=== PATIENT | female | born 1970 | race Caucasian/White ===

== ENCOUNTER 2023-09-05 08:26 | Emergency (ER) | payer MEDICARE, BC ==
[~2023-09-05] VITALS: Ht 165.1 cm; Wt 96.9 kg
[2023-09-05 08:32] VITALS: TEMP 97
[2023-09-05] MEDS ORDERED: diphenhydrAMINE 50 mg/ml inj IV ONE (09:20)
--- NOTE | 2023-09-05 09:28 | NUR ---
AFTER SEEING PT, I REVIEWED AND AGREE WITH THE ASSESSMENT
[2023-09-05] MEDS ORDERED: metoclopramide 5 mg/ml inj IV ONE (09:35)
[2023-09-05] MEDS ORDERED: normal saline 1000ml 1,000 ML IV ONE (09:35)
[2023-09-05] MEDS ORDERED: HYDROmorphone 1 mg/ml syringe IV ONE (10:40)
[2023-09-05] MEDS ORDERED: ONDA4TAB12 PO (12:04)
[2023-09-05 12:19] VITALS: BP 115/61; PULSE 76; RESP 18; O2SAT 95
== END 2023-09-05 12:22 | disposition home or self-care (01) ==
LOC: ER 08:27
DX: U07.1 COVID-19 (principal); G43.909 Migraine, unspecified, not intractable, without status migrainosus; Z88.6 Allergy status to analgesic agent; Z88.5 Allergy status to narcotic agent; Z88.8 Allergy status to other drugs, medicaments and biological substances
CPT/HCPCS: 36415; 87502; 87503; 87811; 96361; 96374; 96375; 99284; J1170; J1200; J2765; J7030

== ENCOUNTER 2024-06-27 21:08 | Emergency (ER) | payer BC, MEDICARE ==
[~2024-06-27] VITALS: Ht 165.1 cm; Wt 85.0 kg
[~2024-06-27 21:08] MED LIST: ONDA-243 PO
[2024-06-27 21:11] VITALS: TEMP 97.7
[2024-06-27] MEDS: proCHLORperazine 10 MG/2 ml inj IV ONE (21:56)
[2024-06-27] MEDS: dexamethasone 4mg/ml inj IV SCH (21:57)
[2024-06-27] MEDS: normal saline 1000ml 1,000 ML IV ONE (21:57)
[2024-06-27] MEDS: diphenhydrAMINE 50 mg/ml inj IV ONE (21:57)
[2024-06-27] MEDS ORDERED: RIME75TA PO (22:33)
[2024-06-27] MEDS ORDERED: ONDA-243 PO (22:34)
[2024-06-27] MEDS: HYDROmorphone inj. 0.5 MG/0.5 ML DISP.SYRIN IV ONE (22:43)
[2024-06-27 23:23] VITALS: BP 110/59; PULSE 78; RESP 18; O2SAT 98
== END 2024-06-27 23:26 | disposition home or self-care (01) ==
LOC: ER 21:09
DX: R51.9 Headache, unspecified (principal); Z88.6 Allergy status to analgesic agent; Z79.899 Other long term (current) drug therapy
CPT/HCPCS: 96361; 96374; 96375; 99284; J0780; J1100; J1170; J1200; J7030

== ENCOUNTER 2025-03-07 08:22 | Day surgery (SDC) | payer MEDICARE ==
[2025-03-07] VITALS (11 sets, daily range): BP systolic 93–135; BP diastolic 47–69; PULSE 58–65; RESP 11–20; O2SAT 97–100
[~2025-03-07] VITALS: Ht 165.1 cm; Wt 81.8 kg
[~2025-03-07 08:22] MED LIST changes: +ALLO100T PO; +ALPR-624 PO; +ATOR20TA PO; +CHOL20004 PO; +DESV50TA20 PO; +ESTR2TAB50; +FERR324T23 PO; +FURO40TA4 PO; +LEVO137T24 PO; -ONDA-243 PO; +PROP80TA4 PO; +RAMI5CAP71 PO; +RIME75TA PO; +TRAM200T30 PO
[2025-03-07] MEDS ORDERED: iohexol 300 MG/1 ML 50ml polymer ONE (09:12)
[2025-03-07] MEDS ORDERED: glucagon, human recombinant 1mg kit ONE ×2 (09:12)
[2025-03-07] MEDS ORDERED: iohexol 300mg/ml 100ml inj. ONE (09:15)
[2025-03-07] MEDS ORDERED: levoFLOXACIN-Levaquin 500mg/D5 0 ML IV ONE ×2 (09:28→09:29)
[2025-03-07 09:29] LABS: BASOPHILS # (AUTO) 0.1 X10'3 (0-0.2); BASOPHILS % (AUTO) 0.9 % (0-1); EOSINOPHILS # (AUTO) 0.6 X10'3 (0-0.9); EOSINOPHILS % (AUTO) 4.5 % (0-6); HEMATOCRIT 31.5 % (35.0-45.0); HEMOGLOBIN 10.4 g/dl (12.0-16.0); LYMPHOCYTES # (AUTO) 2.4 X10'3 (1.1-4.8); LYMPHOCYTES % (AUTO) 18.8 % (21-51); MEAN CORPUSCULAR HEMOGLOBIN 28.9 PG (27.0-31.0); MEAN CORPUSCULAR HGB CONC 32.9 g/dL (33.0-36.5); MEAN PLATELET VOLUME 7.8 FL (7.4-10.4); MONOCYTES # (AUTO) 0.7 X10'3 (0-0.9); MONOCYTES % (AUTO) 5.8 % (2-12); NEUTROPHILS # (AUTO) 8.7 X10'3 (1.8-7.7); PLATELET COUNT 354 X10'3 (140-440); RED BLOOD COUNT 3.58 X10'6 (4.20-5.60); RED CELL DISTRIBUTION WIDTH 15.7 % (11.5-14.5); WHITE BLOOD COUNT 12.5 X10'3 (4.5-11.0)
[2025-03-07 09:42] LABS: ALBUMIN 2.7 G/DL (3.4-5.0); ALBUMIN/GLOBULIN RATIO 0.6 (1.1-1.5); ALKALINE PHOSPHATASE 203 IU/L (46-116); BLOOD UREA NITROGEN 47 MG/DL (7-18); CALCIUM 9.1 MG/DL (8.5-10.1); CHLORIDE 99 MMOL/L (99-107); CREATININE 3.13 MG/DL (0.40-0.90); PRE OP ALT 18 U/L (30-65); PRE OP ANION GAP 8 (8-16); PRE OP AST 18 U/L (10-37); PRE OP BILIRUB, TOTAL 0.4 MG/DL (0.0-1.0); PRE OP GLUCOSE 121 MG/DL (70-104); PRE OP POTASSIUM 4.6 MMOL/L (3.4-5.1); PRE OP SODIUM 134 MMOL/L (135-145); TOTAL CARBON DIOXIDE 27.3 MMOL/L (24-32); TOTAL PROTEIN 7.3 G/DL (6.4-8.2); eCRCL 18 ML/MIN; eGFR 15 ML/MIN
[2025-03-07] MEDS ORDERED: MIDAZolam 1 MG/ML 5ML VIAL ONE (09:47)
[2025-03-07] MEDS ORDERED: fentaNYL/PF 50MCG/1 ML 2ML syringe ONE (09:57)
[2025-03-07] MEDS ORDERED: midazolam 1 mg/ML 2ml injection ONE (09:58)
[2025-03-07] MEDS ORDERED: LIDOcaine 2% (20mg/ml) 5ml vial ONE (09:58)
[2025-03-07] MEDS ORDERED: rocuronium 10mg/ml inj IV ONE (09:58)
[2025-03-07] MEDS ORDERED: propofol inj 20 ML IV ONE (09:58)
[2025-03-07] MEDS ORDERED: sevoflurane 250ml liquid IH ONE (10:00)
[2025-03-07] MEDS ORDERED: simethicone 40mg/0.6ml oral drops 30ml ONE (10:14)
[2025-03-07] MEDS ORDERED: dexamethasone sod phosphate 4mg/ml inj. ONE (10:16)
[2025-03-07] MEDS ORDERED: ceFOXitin 1 GM/NS 100mL IVPB 100 ML IV ONE (10:17)
[2025-03-07] MEDS ORDERED: ceFOXitin 1 GM/D5W 50mL IVPB 50 ML IV ONE (10:19)
[2025-03-07] MEDS ORDERED: sugammadex 200mg/2ml injection IV ONE (10:31)
[2025-03-07] MEDS ORDERED: ondansetron/PF 4mg/2ml inj IV PRN (10:45)
[2025-03-07] MEDS ORDERED: enalaprilat 1.25mg/ml 2ml vial IV PRN (10:45)
[2025-03-07] MEDS ORDERED: fentaNYL/PF 50MCG/1 ML 2ML syringe IV PRN ×2 (10:45)
[2025-03-07] MEDS ORDERED: ringers solution, lacted 1,000 ML IV SCH (10:45)
[2025-03-07] MEDS ORDERED: hydrALAZINE 20mg/ml inj. IV PRN (10:45)
== END 2025-03-07 12:11 | disposition home or self-care (01) ==
LOC: GI LAB 08:22
PROVIDERS: ATTEND Internal Medicine Gastroenterology
DX: T85.590A Other mechanical complication of bile duct prosthesis, initial encounter (principal); K83.8 Other specified diseases of biliary tract; N18.5 Chronic kidney disease, stage 5; G43.909 Migraine, unspecified, not intractable, without status migrainosus; I12.0 Hypertensive chronic kidney disease with stage 5 chronic kidney disease or end stage renal disease; F41.9 Anxiety disorder, unspecified; F32.A Depression, unspecified; Z79.899 Other long term (current) drug therapy
CPT/HCPCS: 36415; 43276; 74328; 80053; 85025; C1769; C1889; C2625; J0360; J0694; J1100; J1610; J2003; J2250; J2405; J2704; J3010; J3490; J7030; J7120; Q9967; Z7506; Z7512; Z7610; J0696; J1956

== ENCOUNTER 2025-05-02 07:44 | Day surgery (SDC) | payer MEDICARE ==
[2025-05-02] VITALS (9 sets, daily range): BP systolic 133–157; BP diastolic 65–85; PULSE 74–85; RESP 12–20; TEMP 98; O2SAT 96–98
[~2025-05-02] VITALS: Ht 165.1 cm; Wt 88.6 kg
[~2025-05-02 07:44] MED LIST changes: +ONDA-243 PO; +OXYC10TA47 PO; -RIME75TA PO
[2025-05-02 08:49] LABS: BASOPHILS # (AUTO) 0.1 X10'3 (0-0.2); BASOPHILS % (AUTO) 0.7 % (0-1); EOSINOPHILS # (AUTO) 0.5 X10'3 (0-0.9); EOSINOPHILS % (AUTO) 3.6 % (0-6); HEMATOCRIT 31.6 % (35.0-45.0); HEMOGLOBIN 10.7 g/dl (12.0-16.0); LYMPHOCYTES # (AUTO) 2.1 X10'3 (1.1-4.8); LYMPHOCYTES % (AUTO) 15.5 % (21-51); MEAN CORPUSCULAR HEMOGLOBIN 29.2 PG (27.0-31.0); MEAN CORPUSCULAR HGB CONC 33.9 g/dL (33.0-36.5); MEAN PLATELET VOLUME 7.7 FL (7.4-10.4); MONOCYTES # (AUTO) 0.8 X10'3 (0-0.9); MONOCYTES % (AUTO) 5.7 % (2-12); NEUTROPHILS # (AUTO) 10.2 X10'3 (1.8-7.7); NEUTROPHILS % (AUTO) 74.5 % (42-75); PLATELET COUNT 319 X10'3 (140-440); RED BLOOD COUNT 3.67 X10'6 (4.20-5.60); RED CELL DISTRIBUTION WIDTH 16.2 % (11.5-14.5); WHITE BLOOD COUNT 13.6 X10'3 (4.5-11.0)
[2025-05-02 09:03] LABS: ALANINE AMINOTRANSFERASE 23 U/L (12-78); ALBUMIN 2.7 G/DL (3.4-5.0); ALBUMIN/GLOBULIN RATIO 0.5 (1.1-1.5); ALKALINE PHOSPHATASE 265 IU/L (46-116); ANION GAP 10 (8-16); ASPARTATE AMINO TRANSFERASE 22 U/L (10-37); BILIRUBIN,TOTAL 0.2 MG/DL (0.1-1.0); BLOOD UREA NITROGEN 66 MG/DL (7-18); BUN/CREATININE RATIO 19.1 (10.0-20.0); CALCIUM 8.7 MG/DL (8.5-10.1); CHLORIDE 99 MMOL/L (99-107); CREATININE 3.46 MG/DL (0.40-0.90); GLUCOSE 149 MG/DL (70-104); POTASSIUM 4.5 MMOL/L (3.5-5.1); SODIUM 133 MMOL/L (135-145); TOTAL CARBON DIOXIDE 23.6 MMOL/L (24-32); TOTAL PROTEIN 7.8 G/DL (6.4-8.2); eCRCL 17 ML/MIN; eGFR 14 ML/MIN
[2025-05-02] MEDS ORDERED: glucagon, human recombinant 1mg kit ONE (09:10)
[2025-05-02] MEDS ORDERED: iohexol 300mg/ml 100ml inj. ONE (09:10)
[2025-05-02] MEDS ORDERED: fentaNYL/PF 50MCG/1 ML 2ML syringe ONE ×2 (09:29→09:47)
[2025-05-02] MEDS ORDERED: MIDAZolam 1 MG/ML 5ML VIAL ONE ×2 (09:29→09:40)
[2025-05-02] MEDS ORDERED: propofol inj 20 ML IV ONE (09:37)
[2025-05-02] MEDS ORDERED: simethicone 40mg/0.6ml oral drops 30ml ONE (09:40)
[2025-05-02] MEDS ORDERED: LIDOcaine 2% (20mg/ml) 5ml vial ONE (09:47)
== END 2025-05-02 11:05 | disposition home or self-care (01) ==
LOC: GI LAB 07:44
PROVIDERS: ATTEND Internal Medicine Gastroenterology
DX: Z46.59 Encounter for fitting and adjustment of other gastrointestinal appliance and device (principal); K83.8 Other specified diseases of biliary tract; Z88.8 Allergy status to other drugs, medicaments and biological substances
CPT/HCPCS: 36415; 43275; 74328; 80053; 85025; C1769; C1889; J2003; J2250; J2704; J3010; J7030; J7040; Q9967; Z7506; Z7512; Z7610; 76000; J1610